=== PATIENT | female | born 1935 | race Hispanic/Latino ===

== ENCOUNTER 2019-03-19 11:57 | Emergency (ER) | payer MEDICARE ==
[~2019-03-19 11:57] MED LIST: ALOG25TA2 PO; AMLO10TA7 PO; ATOR20TA65 PO; BACL10TA PO; CIPR-245 PO; CLON0.2T PO; CLOP75TA32 PO; FURO40TA5 PO; GABA-529 PO; LISI-613 PO; METF-444 PO; PARO-37 PO; TRAM50TA4 PO; ZOLP5TAB8 PO
[2019-03-19 12:48] LABS: BASOPHILS % (AUTO) 0.4 % (0.0-5.0); EOSINOPHILS % (AUTO) 0.6 % (0.0-8.0); HEMATOCRIT 35.6 % (36-48); LYMPHOCYTES % (AUTO) 25.6 % (21.0-51.0); MEAN CORPUSCULAR HEMOGLOBIN 31.8 pg (27.0-33.0); MEAN CORPUSCULAR HGB CONC 33.4 g/dL (32.0-36.0); MEAN CORPUSCULAR VOLUME 95.3 fL (79-99); MONOCYTES % (AUTO) 8.9 % (3.0-13.0); NEUTROPHILS % (AUTO) 64.5 % (40.0-77.0); NUCLEATED RED BLOOD CELLS 0.1 % (0.0-0.19); PLATELET COUNT (AUTO) 196 K/uL (130-400); RED BLOOD CELL COUNT(AUTO) 3.74 MIL/uL (4.00-5.50); RED CELL DISTRIBUTION WIDTH 12.9 % (11.0-15.5); WHITE BLOOD COUNT (AUTO) 4.2 K/uL (4.8-10.8)
[2019-03-19 12:59] LABS: CREATININE 0.9 mg/dL (0.5-1.5); POTASSIUM 4.4 mmol/L (3.5-5.1)
[2019-03-19 13:00] LABS: INR 0.94 (0.85-1.15); PARTIAL THROMBOPLASTIN TIME 25.3 SEC (26.3-35.5); PROTHROMBIN TIME 9.9 SEC (9.6-11.6)
[2019-03-19 13:11] LABS: ALBUMIN 3.8 g/dL (3.5-5.0); BILIRUBIN,TOTAL 0.3 mg/dL (0.2-1.0); TOTAL PROTEIN, SERUM 7.1 g/dL (6.0-8.3)
[2019-03-19 13:28] LABS: APPEARANCE,URINE SL CLOUDY (CLEAR); BILIRUBIN,URINE NEGATIVE (NEGATIVE); COLOR,URINE YELLOW (YELLOW); GLUCOSE, URINE (UA) NEGATIVE (NEGATIVE); KETONES,URINE NEGATIVE (NEGATIVE); LEUKOCYTE ESTERASE ,URINE LARGE (NEGATIVE); NITRATE,URINE NEGATIVE (NEGATIVE); OCCULT BLOOD,URINE NEGATIVE (NEGATIVE); PH,URINE 7.5 (5.0-8.0); PROTEIN,URINE NEGATIVE (NEGATIVE); UROBILINOGEN,URINE 0.2 mg/dL (0.2-1.0)
[2019-03-19 13:34] LABS: BACTERIA,URINE Many /HPF (None Seen); RBC,URINE 0-1 /HPF (0-1); SQUAMOUS EPITHELIAL CELL,UR 0-2 /HPF (0-2)
[2019-03-19] MEDS ORDERED: SODIUM CHLORIDE 0.9% 100 ML IV ONE (13:54)
[2019-03-19] MEDS ORDERED: CEFTRIAXONE SODIUM 1 GM ONE (13:54)
== END 2019-03-19 15:45 | disposition home or self-care (01) ==
LOC: EDH 11:57
DX: S16.1XXA Strain of muscle, fascia and tendon at neck level, initial encounter (principal); N30.00 Acute cystitis without hematuria; G44.209 Tension-type headache, unspecified, not intractable; I10 Essential (primary) hypertension; E11.9 Type 2 diabetes mellitus without complications; I25.10 Atherosclerotic heart disease of native coronary artery without angina pectoris; Z88.6 Allergy status to analgesic agent; X58.XXXA Exposure to other specified factors, initial encounter; Y93.89 Activity, other specified; Y92.89 Other specified places as the place of occurrence of the external cause; Y99.8 Other external cause status
CPT/HCPCS: 36415; 70450; 71045; 72125; 80053; 81001; 82550; 83874; 84484; 85025; 85610; 85730; 87077; 87088; 87186; 93005; 96374; 99285; J0696

== ENCOUNTER 2019-06-22 15:16 | Inpatient (IN) | payer MEDICARE ==
[~2019-06-22] VITALS: Ht 160 cm; Wt 61.2 kg
[2019-06-22 15:46] LABS: BASOPHILS % (AUTO) 0.8 % (0.0-5.0); EOSINOPHILS % (AUTO) 0.9 % (0.0-8.0); HEMATOCRIT 35.1 % (36-48); LYMPHOCYTES % (AUTO) 33.9 % (21.0-51.0); MEAN CORPUSCULAR HGB CONC 34.3 g/dL (32.0-36.0); MEAN CORPUSCULAR VOLUME 96.3 fL (79-99); MONOCYTES % (AUTO) 8.8 % (3.0-13.0); NEUTROPHILS % (AUTO) 55.6 % (40.0-77.0); PLATELET COUNT (AUTO) 177 K/uL (130-400); RED BLOOD CELL COUNT(AUTO) 3.65 MIL/uL (4.00-5.50); RED CELL DISTRIBUTION WIDTH 12.6 % (11.0-15.5); WHITE BLOOD COUNT (AUTO) 4.6 K/uL (4.8-10.8)
[2019-06-22 15:52] LABS: CREATININE 0.8 mg/dL (0.5-1.5)
[2019-06-22 15:57] LABS: ALBUMIN 3.7 g/dL (3.5-5.0); BILIRUBIN,TOTAL 0.3 mg/dL (0.2-1.0); TOTAL PROTEIN, SERUM 6.6 g/dL (6.0-8.3)
[2019-06-22 16:08] LABS: INR 0.97 (0.85-1.15); PARTIAL THROMBOPLASTIN TIME 25.5 SEC (26.3-35.5); PROTHROMBIN TIME 10.2 SEC (9.6-11.6)
[2019-06-22 16:18] LABS: APPEARANCE,URINE Clear (CLEAR); BILIRUBIN,URINE Negative (NEGATIVE); COLOR,URINE Yellow (YELLOW); GLUCOSE, URINE (UA) Negative (NEGATIVE); KETONES,URINE Negative (NEGATIVE); LEUKOCYTE ESTERASE ,URINE Large (NEGATIVE); NITRATE,URINE Negative (NEGATIVE); OCCULT BLOOD,URINE Negative (NEGATIVE); PROTEIN,URINE Negative (NEGATIVE); UROBILINOGEN,URINE 0.2 mg/dL (0.2-1.0)
[2019-06-22 16:44] LABS: BACTERIA,URINE Few /HPF (None Seen); MUCUS,URINE None Seen LPF (None Seen); RBC,URINE 0-1 /HPF (0-1); SQUAMOUS EPITHELIAL CELL,UR 0-2 /HPF (0-2)
[2019-06-22] MEDS ORDERED: LIDOCAINE 5% TOPICAL PATCH TP ONE (16:56)
[2019-06-22 22:20] VITALS: BP 150/76
--- NOTE | 2019-06-22 22:20 | NUR ---
ADMIT PT ADMITTED TO ROOM 419,AAOX3. CLAIMS OF NUMBNESS TO LEFT SIDE OF FACE. PAIN TO LEFT CHEST AND LEFT ARM INTERMITTENT DEPENDING ON MOVEMENT. ADMISSION CARE DONE. ADMISSION DATA BASE COMPLETED. SALINE LOCK FLUSHED, PATENT. KEPT COMFORTABLE IN BED. RE-ITERATED FALL PRECAUTIONS. ORIENTED TO ROOM AND UNIT. IN FOR MORE CARE AND MANAGEMENT. Addendum: 06/23/19 at 0106 by MONA RESTREPO RN RN Amended: Links added.
--- NOTE | 2019-06-22 23:00 | NUR ---
PIV EXPLAINED THAT MRI AND MRA WILL BE DONE IN AM. PT AND PT'S DAUGHTER VERBALIZES UNDERSTANDING. CONSENT FOR MRI OF THE BRAIN AND MRA OF NECK SIGNED BY PT'S DAUGHTER/MPOA. PIV G20 INSERTED TO LAC, PT TOLERATED INSERTION WELL. INSTRUCTED PT TO BE NPO POST MN FOR TESTS. WILL MONITOR PT. CALL LIGHT WITHIN REACH. Addendum: 06/23/19 at 0113 by MONA RESTREPO RN RN Amended: Links added.
[2019-06-22] MEDS ORDERED: CALC-910 PO (23:57)
[2019-06-22] MEDS ORDERED: HYDR100T27 PO (23:57)
[2019-06-22] MEDS ORDERED: PANT40TA25 PO (23:57)
[2019-06-22] MEDS ORDERED: CYAN10007 IJ (23:57)
[2019-06-22] MEDS ORDERED: CYAN-35 PO (23:57)
[2019-06-22] MEDS ORDERED: CARV3.1262 PO (23:57)
[2019-06-22] MEDS ORDERED: LOSA50TA64 PO (23:57)
[2019-06-22] MEDS ORDERED: ASPI-555 PO (23:57)
[2019-06-22] MEDS ORDERED: OMEP40CA13 PO (23:57)
--- NOTE | 2019-06-23 02:00 | NUR ---
ROUNDS PT RESTING WELL, FAIRLY ASLEEP WITH RESPIRATIONS EVEN AND UNLABORED. NO NOTED DISTRESS. KEPT UNDISTURBED FOR NOW.
[2019-06-23 03:38] VITALS: BP 148/55
--- NOTE | 2019-06-23 06:00 | NUR ---
ROUNDS PT RESTING WELL. NO DISTRESS NOTED. KEPT RESTED AND COMFORTABLE. CALL LIGHT WITHIN REACH. FOR MORE CARE.
[2019-06-23 07:59] VITALS: BP 134/59
--- NOTE | 2019-06-23 09:20 | NUR ---
DR. BARLOW HERE FOR NEURO CARE AND ALSO SPOKE WITH DAUGHTER OF CONT ..CARE WITH .ORDERS TO FOLLOW
[2019-06-23] MEDS ORDERED: GADODIAMIDE 10 MMOL/20 ML VIAL IV ONE (09:30)
--- NOTE | 2019-06-23 09:40 | NUR ---
TO . MRI AND MRA VIA WHEELCHAIR
[2019-06-23 11:00] VITALS: BP 156/68
[2019-06-23] MEDS: CLOPIDOGREL BISULFATE 75 MG TAB PO SCH (11:06)
[2019-06-23] MEDS: ASPIRIN 325MG EC TAB 325 MG TABLET.DR PO SCH (11:06)
--- NOTE | 2019-06-23 11:59 | NUR ---
DYSPHAGIA EVAL COMPLETED. -S.S OF ASPIRATION. RECOMMEND MECHANICAL SOFT/CHOPPED, THIN LIQUIDS; PILLS WHOLE WITH LIQUIDS. RECOMMENDATIONS: 1. SKILLED SPEECH THERAPY TARGETING SWALLOWING GOALS 2-4XWK. LTG1: PT WILL TOLERATE LEAST RESTRICTIVE DIET WITH NO OVERT S/S OF ASPIRATION FOR ALL MEALS AND SNACKS. STG1: Pt WILL COMPLETE ORAL MOTOR EXERCISES WITH 80% ACCURACY. STG2: Pt WILL COMPLETE THERAPEUTIC TRIALS OF ADVANCED TEXTURE OF SOLIDS WITH NO OVERT S/S OF ASPIRATION. STG3: Pt WILL TOLERATE MECHANICAL SOFT/CHOPPED, THIN LIQUIDS WITH NO OVERT S/S OF ASPIRATION. STG4: SKILLED EDUCATION Pt/FAMILY/STAFF. Addendum: 06/23/19 at 1211 by OBDULIO CAPELLAN [facility] Amended: Links added.
--- NOTE | 2019-06-23 12:15 | NUR ---
COGNITIVE-LINGUISTIC EVAL COMPLETED. Pt WITH MILD MOTOR SPEECH DEFICITS. PT INTELLIGIBLE AT 80% IN RUNNING SPEECH WITH FACIAL WEAKNESS ON LEFT SIDE. Pt WITH DECREASED ABILITY TO COMPLETE AMRs/SMRs. Pt WITH LABORED LINGUAL AND LABIAL MOVEMENT AT THIS TIME. RECOMMENDATIONS: 1. SKILLED SPEECH THERAPY TARGETING MOTOR SPEECH 2-4XWK. LTG1: PT WILL INCREASE SPEECH INTELLIGIBILITY TO BE UNDERSTOOD IN ALL CONTEXTS. STG1: Pt WILL COMPLETE LINGUAL AND LABIAL EXERCISES WITH 80% ACCURACY, STG2: Pt WILL COMPLETE AMRs/SMRs WITH 80% ACCURACY. STG3: SKILLED EDUCATED Pt/FAMILY AND STAFF. STG4: Pt WILL COMPLETE SPEECH CLARITY TECHNIQUES AT THE PHRASE LEVEL WITH 80% ACCURACY. Addendum: 06/23/19 at 1222 by OBDULIO CAPELLAN, [facility] Amended: Links added.
--- NOTE | 2019-06-23 15:14 | NUR ---
RD RECOMMENDATION DX: LEFT SIDED WEAKNESS. HX: DM, HTN. DIET: NPO. LBM: 06/23. SKIN INTACT, NO EDEMA. PO INTAKE 50-75% AND HAS GOOD APPETITE PER PT. NO NAUSEA, VOMITING OR DIARRHEA NOTED. PT CLAIMS TO HAVE DIFFICULTY SWALLOWING. PT ASKED TO MODIFY FOOD TEXTURES TO MECHANICAL CHOPPED/ SOFT. PT LIKES GLUCERNA AND DRINKS THEM AT HOME. RD RECOMMENDS TO CONTINUE CURRENT DIET. ADVANCE TOLERATED TO CCD/ HEART HEALTHY, MECHANICAL CHOPPED/ SOFT. RECOMMEND GLUCERNA A SNACK (VANILLA). RECOMMEND A1C AND LIPID PANEL LAB DRAW. RD WILL CONTINUE TO MONITOR AND FOLLOW UP NEEDED. THANK YOU. Addendum: 06/23/19 at [address] Amended: Links added.
[2019-06-23 16:00] VITALS: BP 155/64
--- NOTE | 2019-06-23 17:00 | NUR ---
INITIAL MET W PT WITH SUSAN FROM [facility] ON AGING AT BEDSIDE, PT AAOX3, W BELLS PALSY, BUT EASY TO UNDERSTAND. JANE. PT STATES LIVES ALONE WITH HELP, AND DAUGHTER SANTOS NEARBY , NO STAITS, USES A STD WKR W WHEELS AND HAS [facility] AND [facility] FOR PROVIDER SERVICES. DAUGHTER CAME AT END OF INTERVIW AND ADDED INFO TO THE HSITORY. PT IS GOOD HISTORIAN WILL FOLLOW RECOMMENDATION PER MD GUPTA PT NEEDS . ADMIT FOR TIA VS CERVICAL RADICULOPTHY Addendum: 06/23/19 at 1821 by YAMILE ADAMS RN CM Amended: Links added.
[2019-06-23 19:00] VITALS: BP 149/65
[2019-06-23] MEDS ORDERED: ZOLPIDEM TARTRATE 5 MG TAB PO PRN (19:15)
[2019-06-23] MEDS: LOSARTAN 50 MG TABLET PO SCH (20:58)
[2019-06-23] MEDS: HYDRALAZINE HCL 25 MG TABLET PO SCH (20:59)
--- NOTE | 2019-06-23 20:59 | NUR ---
MEDS SHIFT ASSESSMENT DONE, PLEASE REFER TO CHART. PT VERBALIZES STILL HAVING NUMBNESS TO LEFT SIDE OF HER FACE. NOTED LEFT SIDED FACIAL DROOP. DUE MEDS ADMINISTERED, TOLERATED WELL. KEPT RESTED AND COMFORTABLE. CALL LIGHT WITHIN REACH. WILL MONITOR PT. Addendum: 06/24/19 at 0204 by MONA RESTREPO RN RN Amended: Links added.
[2019-06-23] MEDS: CARVEDILOL 3.125 MG TABLET PO SCH (21:00)
[2019-06-24] VITALS: BP 133/56
--- NOTE | 2019-06-24 02:00 | NUR ---
ROUNDS PT RESTING WELL, FAIRLY ASLEEP WITH RESPIRATIONS EVEN AND UNLABORED. NO NOTED DISTRESS. KEPT UNDISTURBED FOR NOW. WILL MONITOR PT.
[2019-06-24 04:00] VITALS: BP 140/42
[2019-06-24] MEDS: PANTOPRAZOLE SODIUM 40 MG TABLET.DR PO SCH ×2 (06:50→10:41)
--- NOTE | 2019-06-24 06:50 | NUR ---
MEDS AWAKENED PT FOR DUE MEDS, TOLERATED WELL. KEPT RESTED AND COMFORTABLE. CALL LIGHT WITHIN REACH. FOR MORE CARE.
[2019-06-24 07:30] VITALS: BP 135/61
--- NOTE | 2019-06-24 08:30 | NUR ---
MD AT PTS BEDSIDE DISCUSSING PLAN PT WILL NOT BE SET UP AT THIS TIME WILL WAIT FOR CLEARENCE BY YEN/SIX DR. SPENCER CAN SET UP PT --TO ADD TO HOME HEALTH- FROM HER OFFICE
[2019-06-24] MEDS ORDERED: AMLODIPINE BESYLATE 5 MG TAB PO SCH (09:00)
[2019-06-24] MEDS ORDERED: PAROXETINE HCL 20 MG TABLET PO SCH (09:00)
[2019-06-24] MEDS ORDERED: CYANOCOBALAMIN (VITAMIN B-12) 1,000 MCG TABLET PO SCH (09:00)
[2019-06-24] MEDS: LOSARTAN 50 MG TABLET PO SCH (10:39)
[2019-06-24] MEDS: ASPIRIN 325MG EC TAB 325 MG TABLET.DR PO SCH (10:39)
[2019-06-24] MEDS: CARVEDILOL 3.125 MG TABLET PO SCH (10:40)
[2019-06-24] MEDS: HYDRALAZINE HCL 25 MG TABLET PO SCH ×2 (10:41→14:19)
[2019-06-24] MEDS: CLOPIDOGREL BISULFATE 75 MG TAB PO SCH (10:41)
[2019-06-24 11:00] VITALS: BP 141/58
--- NOTE | 2019-06-24 14:39 | NUR ---
SPEECH THERAPY COMPLETED. S: Pt SEATED IN CHAIR WITH DAUGHTERS AT BEDSIDE. Pt COOPERATIVE WITH ALL EXERCISES. O: Pt CURRENTLY TARGETING SPEECH AND SWALLOWING GOALS. RESULTS FOLLOWS: STG1: Pt WILL COMPLETE ORAL MOTOR EXERCISES WITH 80% ACCURACY: 70% ACCURACY GIVEN MAX CUES STG2: Pt WILL COMPLETE THERAPEUTIC TRIALS OF ADVANCED TEXTURE OF SOLIDS WITH NO OVERT S/S OF ASPIRATION: Pt WITH IMPROVED COORDINATION AND MASTICATION AT THIS TIME. STG3: Pt WILL TOLERATE MECHANICAL SOFT/CHOPPED, THIN LIQUIDS WITH NO OVERT S/S OF ASPIRATION: NO OVERT S/S OF ASPIRATION. Pt TOLERATING DIET AT THIS TIME STG4: SKILLED EDUCATION Pt/FAMILY/STAFF: [employer] EDUCATED DAUGHTERS AND PROVIDED HOME PROGRAM WITH WRITTEN HANDOUT FOR EXERCISES TO COMPLETE IN THE HOME. STG5: Pt WILL COMPLETED AMRs/SMRs WITH 80% ACCURACY: 70% ACCURACY GIVEN MAX CUES. STG6: Pt WILL COMPLETE SPEECH CLARITY EXERCISES WITH 80% ACCURACY: 70% ACCURACY AT PHRASE LEVEL A: Pt WITH IMPROVED LABIAL MOVEMENT AND SYMMETRY. Pt ABLE TO INCREASED LINGUAL COORDINATION WITH IMPROVED ROM. P: RECOMMEND CONTINUED SKILLED SPEECH THERAPY TARGETING SPEECH AND SWALLOWING GOALS. MER[employer] W[employer]ER COORDINATED CARE WITH NURSE MACIEL AT THIS TIME. ALL QUESTIONS ANSWERED BY [employer] W[employer]ER FOR Pt AND DAUGHTER. Addendum: 06/24/19 at 1449 by OBDULIO CAPELLAN [facility] Amended: Links added.
[2019-06-24 16:00] VITALS: BP 115/48
--- NOTE | 2019-06-24 17:48 | NUR ---
PATIENT GIVEN DISCHARGE INSTRUCTIONS AND VERBALIZED UNDERSTANDING, BOTH IV REMOVED WITH CATHETER INTACT AND SITE DRESSED. PATIENT INSTRUCTED TO CALL DR MADDOX OFFICE IN AM FOR FOLLOW-UP APPOINTMENT, TAKE ASPIRIN FOR SIX MORE DAYS WITH PLAVIX THEN DISCONTINUE ASPIRIN AND CONTINUE TAKING PLAVIX. , PATIENT TO GET REFERRALS FOR DR MADDOX FOR DR LEYVA AND DR BARLOW FOLLOW-UPS, NO QUESTIONS OR CONCERNS AT THIS TIME PAINT TAKING VIA WHEELCHAIR TO LOBBY AND LEFT WITH DAUGHTER FOR HOME
--- NOTE | 2019-06-24 18:27 | NUR ---
AT PTS BEDSIDE DISCUSSING PLAN PT WILL NOT BE SET UP AT THIS TIME WILL WAIT FOR CLEARENCE BY YEN/AUTUM[employer] SPENCER CAN SET UP PT --TO ADD TO HOME HEALTH- FROM HER OFFICE Addendum: 06/24/19 at 1830 by YAMILE ADAMS RN CM THIS NOTE IS FORM 0830 Addendum: 06/24/19 at 1831 by YAMILE ADAMS RN CM Amended: Links added.
== END 2019-06-24 17:50 | disposition home or self-care (01) | DRG 69 ==
LOC: EDH 15:16 → OBSVTOIN 17:17 → EDHIP 17:17 → 4CH 22:07 → UNDODISIN 06-24 16:05
PROVIDERS: ADMIT Internal Medicine Nephrology; ATTEND Internal Medicine Nephrology
DX: G45.9 Transient cerebral ischemic attack, unspecified (principal); I10 Essential (primary) hypertension; E78.5 Hyperlipidemia, unspecified; E11.40 Type 2 diabetes mellitus with diabetic neuropathy, unspecified; F41.1 Generalized anxiety disorder; I25.10 Atherosclerotic heart disease of native coronary artery without angina pectoris; M50.10 Cervical disc disorder with radiculopathy, unspecified cervical region; M81.0 Age-related osteoporosis without current pathological fracture; M19.90 Unspecified osteoarthritis, unspecified site; F32.9 Major depressive disorder, single episode, unspecified; J30.9 Allergic rhinitis, unspecified; G47.00 Insomnia, unspecified; Z79.02 Long term (current) use of antithrombotics/antiplatelets; Z79.82 Long term (current) use of aspirin
CPT/HCPCS: 36415; 70450; 70544; 70547; 70551; 71045; 72141; 80053; 81001; 82550; 82948; 84484; 85025; 85610; 85730; 92507; 92522; 92610; 93005; 93306; A9579; G0378

== ENCOUNTER 2022-04-09 21:20 | Emergency (ER) | payer MEDICARE ==
[~2022-04-09 21:20] MED LIST changes: -ALOG25TA2 PO; -AMLO10TA7 PO; +ATOR10 PO; -ATOR20TA65 PO; -BACL10TA PO; +CARV3.12 PO; -CIPR-245 PO; +CLON0.1T PO; -CLON0.2T PO; +FURO20TA4 PO; -FURO40TA5 PO; -GABA-529 PO; -LISI-613 PO; +LOSA50TA64 PO; +OMEP20CA12 PO; -PARO-37 PO; -TRAM50TA4 PO
[2022-04-09 22:05] LABS: BASOPHILS % (AUTO) 0.3 % (0.0-5.0); EOSINOPHILS % (AUTO) 0.5 % (0.0-8.0); HEMATOCRIT 36.9 % (36-48); LYMPHOCYTES % (AUTO) 12.1 % (21.0-51.0); MEAN CORPUSCULAR HEMOGLOBIN 30.7 pg (27.0-33.0); MEAN CORPUSCULAR HGB CONC 33.1 g/dL (32.0-36.0); MEAN CORPUSCULAR VOLUME 92.9 fL (79-99); NEUTROPHILS % (AUTO) 76.6 % (40.0-77.0); PLATELET COUNT (AUTO) 155 K/uL (130-400); RED BLOOD CELL COUNT(AUTO) 3.97 MIL/uL (4.00-5.50); RED CELL DISTRIBUTION WIDTH 12.1 % (11.0-15.5); WHITE BLOOD COUNT (AUTO) 6.4 K/uL (4.8-10.8)
[2022-04-09 22:21] LABS: CREATININE 0.8 mg/dL (0.5-1.5); POTASSIUM 4.2 mmol/L (3.5-5.1)
[2022-04-09 22:28] LABS: ALBUMIN 3.2 g/dL (3.5-5.0); TOTAL PROTEIN, SERUM 7.1 g/dL (6.0-8.3)
[2022-04-09 22:49] LABS: APPEARANCE,URINE SL CLOUDY (CLEAR); BILIRUBIN,URINE NEGATIVE (NEGATIVE); COLOR,URINE YELLOW (YELLOW); GLUCOSE, URINE (UA) NEGATIVE (NEGATIVE); KETONES,URINE NEGATIVE (NEGATIVE); LEUKOCYTE ESTERASE ,URINE MODERATE (NEGATIVE); NITRATE,URINE POSITIVE (NEGATIVE); OCCULT BLOOD,URINE TRACE-INTACT (NEGATIVE); PH,URINE 5.5 (5.0-8.0); PROTEIN,URINE TRACE mg/dL (NEGATIVE); UROBILINOGEN,URINE 0.2 mg/dL (0.2-1.0)
[2022-04-09 22:55] LABS: BACTERIA,URINE Moderate /HPF (None Seen); RBC,URINE 0-1 /HPF (0-1)
[2022-04-09 23:12] VITALS: BP 149/73
[2022-04-09] MEDS ORDERED: MACR100 PO (23:22)
[2022-04-09] MEDS ORDERED: NIRM1TAB PO (23:22)
== END 2022-04-09 23:45 | disposition home or self-care (01) ==
LOC: EDH 21:20
DX: U07.1 COVID-19 (principal); S09.90XA Unspecified injury of head, initial encounter; N39.0 Urinary tract infection, site not specified; I10 Essential (primary) hypertension; I25.2 Old myocardial infarction; Z79.84 Long term (current) use of oral hypoglycemic drugs; Z79.899 Other long term (current) drug therapy; Z86.73 Personal history of transient ischemic attack (TIA), and cerebral infarction without residual deficits; Z87.440 Personal history of urinary (tract) infections; Z88.6 Allergy status to analgesic agent; W06.XXXA Fall from bed, initial encounter; Y93.89 Activity, other specified; Y92.89 Other specified places as the place of occurrence of the external cause; Y99.8 Other external cause status
CPT/HCPCS: 99285; 70450; 71045; 87635; 84484; 80053; 85025; 87077; 87088; 87186; 87804 ×2; 81001; 36415; 72100; 93005; C9803

== ENCOUNTER 2022-09-29 09:53 | Inpatient (IN) | payer MEDICARE ==
[~2022-09-29] VITALS: Ht 149.9 cm; Wt 71.9 kg
[~2022-09-29 09:53] MED LIST changes: +MACR100 PO; +NIRM1TAB PO
[2022-09-29 10:51] LABS: BASOPHILS % (AUTO) 0.2 % (0.0-5.0); EOSINOPHILS % (AUTO) 1.5 % (0.0-8.0); HEMATOCRIT 40.1 % (36-48); LYMPHOCYTES % (AUTO) 23.4 % (21.0-51.0); MEAN CORPUSCULAR HGB CONC 32.9 g/dL (32.0-36.0); MEAN CORPUSCULAR VOLUME 94.1 fL (79-99); MONOCYTES % (AUTO) 6.9 % (3.0-13.0); NEUTROPHILS % (AUTO) 67.8 % (40.0-77.0); PLATELET COUNT (AUTO) 187 K/uL (130-400); RED BLOOD CELL COUNT(AUTO) 4.26 MIL/uL (4.00-5.50); WHITE BLOOD COUNT (AUTO) 4.6 K/uL (4.8-10.8)
[2022-09-29 11:00] LABS: CREATININE 0.9 mg/dL (0.5-1.5); POTASSIUM 4.1 mmol/L (3.5-5.1)
[2022-09-29 11:01] LABS: APPEARANCE,URINE CLEAR (CLEAR); BILIRUBIN,URINE NEGATIVE (NEGATIVE); COLOR,URINE COLORLESS (YELLOW); GLUCOSE, URINE (UA) NEGATIVE (NEGATIVE); KETONES,URINE NEGATIVE (NEGATIVE); LEUKOCYTE ESTERASE ,URINE NEGATIVE Leu/uL (NEGATIVE); NITRATE,URINE NEGATIVE (NEGATIVE); OCCULT BLOOD,URINE NEGATIVE (NEGATIVE); PROTEIN,URINE NEGATIVE (NEGATIVE); UROBILINOGEN,URINE 0.2 mg/dL (0.2-1.0)
[2022-09-29 11:10] LABS: ALBUMIN 3.4 g/dL (3.5-5.0); TOTAL PROTEIN, SERUM 7.4 g/dL (6.0-8.3)
[2022-09-29] MEDS ORDERED: AMLO-257 PO (14:32)
[2022-09-29] MEDS ORDERED: PROP1DRO4 OP (14:32)
[2022-09-29] MEDS ORDERED: CYCL5.5D OP (14:32)
[2022-09-29] MEDS ORDERED: SOLI5 PO (14:32)
[2022-09-29] MEDS ORDERED: ACET-2247 PO (14:32)
[2022-09-29] MEDS ORDERED: LIFI1DRO OP (14:32)
[2022-09-29] MEDS ORDERED: CRAN400C PO (14:32)
[2022-09-29] MEDS ORDERED: CETI10TA87 PO (14:32)
[2022-09-29] MEDS ORDERED: GABA-529 PO (14:32)
[2022-09-29] MEDS ORDERED: CEPH250C2 PO (14:32)
[2022-09-29 16:10] VITALS: BP 159/60
[2022-09-29] MEDS ORDERED: MAGNESIUM 2GM PREMIX 50ML 50 ML IV ONE (20:02)
[2022-09-29 20:50] VITALS: BP 174/62
[2022-09-29] MEDS ORDERED: ZOLP5TAB8 PO (21:50)
[2022-09-29] MEDS ORDERED: ZOLPIDEM TARTRATE 5 MG TAB ONE (22:22)
[2022-09-29] MEDS ORDERED: CARVEDILOL 3.125 MG TABLET PO ONE (22:23)
[2022-09-29] MEDS ORDERED: LOSARTAN 50 MG TABLET ONE (22:23)
[2022-09-29] MEDS ORDERED: ACETAMINOPHEN 325 MG TAB PO PRN (22:30)
[2022-09-29 23:38] VITALS: BP 161/58
[2022-09-30 04:22] VITALS: BP 137/55
[2022-09-30 04:43] LABS: BASOPHILS % (AUTO) 0.5 % (0.0-5.0); EOSINOPHILS % (AUTO) 1.6 % (0.0-8.0); HEMATOCRIT 37.2 % (36-48); LYMPHOCYTES % (AUTO) 36.6 % (21.0-51.0); MEAN CORPUSCULAR HEMOGLOBIN 30.5 pg (27.0-33.0); MEAN CORPUSCULAR HGB CONC 33.3 g/dL (32.0-36.0); MEAN CORPUSCULAR VOLUME 91.6 fL (79-99); MONOCYTES % (AUTO) 8.7 % (3.0-13.0); NEUTROPHILS % (AUTO) 52.4 % (40.0-77.0); PLATELET COUNT (AUTO) 184 K/uL (130-400); RED BLOOD CELL COUNT(AUTO) 4.06 MIL/uL (4.00-5.50); RED CELL DISTRIBUTION WIDTH 11.9 % (11.0-15.5); WHITE BLOOD COUNT (AUTO) 4.4 K/uL (4.8-10.8)
[2022-09-30 05:16] LABS: ALBUMIN 3.1 g/dL (3.5-5.0); CREATININE 0.7 mg/dL (0.5-1.5); MAGNESIUM 1.6 mg/dL (1.80-2.40); TOTAL PROTEIN, SERUM 6.5 g/dL (6.0-8.3)
[2022-09-30] MEDS ORDERED: MAGNESIUM 2GM PREMIX 50ML 50 ML IV ONE (05:59)
[2022-09-30 08:00] VITALS: BP 137/46
[2022-09-30] MEDS: LOSARTAN 50 MG TABLET PO SCH ×2 (08:13→20:30)
[2022-09-30] MEDS: CETIRIZINE HCL 5 MG TABLET PO SCH (08:13)
[2022-09-30] MEDS: METFORMIN HCL 500 MG TAB.SR.24H PO SCH (08:13)
[2022-09-30] MEDS: CLOPIDOGREL 75MG TAB PO SCH (08:14)
[2022-09-30] MEDS: CARVEDILOL 3.125 MG TABLET PO SCH ×2 (08:15→20:30)
[2022-09-30] MEDS: GABAPENTIN 100 MG CAPSULE PO SCH ×2 (08:16→22:59)
[2022-09-30] MEDS: VESICARE 5 MG PO SCH (08:16)
[2022-09-30] MEDS: CRANBERRY 500 MG PO SCH ×2 (08:16→20:32)
[2022-09-30] MEDS: CYCLOSPORINE OP SCH ×2 (08:17→20:32)
[2022-09-30] MEDS: LIFITEGRAST OP SCH ×3 (08:17→20:33)
[2022-09-30] MEDS ORDERED: ENOXAPARIN SODIUM 1 MG/KG SQ SCH (09:00)
[2022-09-30 11:58] VITALS: BP 147/56
[2022-09-30] MEDS ORDERED: ENOXAPARIN SODIUM 80 MG/0.8 ML SQ SCH (15:30)
[2022-09-30 16:00] VITALS: BP 154/60
[2022-09-30 20:29] VITALS: BP 178/57
[2022-09-30] MEDS: ZOLPIDEM TARTRATE 5 MG TAB PO SCH (20:30)
[2022-10-01] VITALS (7 sets, daily range): BP systolic 140–190; BP diastolic 55–79
[2022-10-01 05:22] LABS: BASOPHILS % (AUTO) 0.3 % (0.0-5.0); EOSINOPHILS % (AUTO) 1.8 % (0.0-8.0); HEMATOCRIT 37.3 % (36-48); LYMPHOCYTES % (AUTO) 37.8 % (21.0-51.0); MEAN CORPUSCULAR HEMOGLOBIN 30.7 pg (27.0-33.0); MEAN CORPUSCULAR HGB CONC 32.7 g/dL (32.0-36.0); MEAN CORPUSCULAR VOLUME 93.7 fL (79-99); MONOCYTES % (AUTO) 7.4 % (3.0-13.0); NEUTROPHILS % (AUTO) 52.4 % (40.0-77.0); PLATELET COUNT (AUTO) 167 K/uL (130-400); RED BLOOD CELL COUNT(AUTO) 3.98 MIL/uL (4.00-5.50); WHITE BLOOD COUNT (AUTO) 3.9 K/uL (4.8-10.8)
[2022-10-01 05:37] LABS: CREATININE 0.7 mg/dL (0.5-1.5); POTASSIUM 3.9 mmol/L (3.5-5.1); TOTAL PROTEIN, SERUM 6.5 g/dL (6.0-8.3)
[2022-10-01] MEDS: METFORMIN HCL 500 MG TAB.SR.24H PO SCH (08:00)
[2022-10-01] MEDS: VESICARE 5 MG PO SCH (09:00)
[2022-10-01] MEDS ORDERED: ENOXAPARIN SODIUM 1 MG/KG SQ SCH (09:00)
[2022-10-01] MEDS: CRANBERRY 500 MG PO SCH ×2 (09:00→20:30)
[2022-10-01] MEDS: REGADENOSON 0.4 MG/5 ML PF SYG IVP SCH ×2 (09:00→13:21)
[2022-10-01] MEDS: LIFITEGRAST OP SCH ×3 (09:00→20:29)
[2022-10-01] MEDS: CYCLOSPORINE OP SCH ×2 (09:00→20:29)
[2022-10-01] MEDS: CLOPIDOGREL 75MG TAB PO SCH (15:21)
[2022-10-01] MEDS: CETIRIZINE HCL 5 MG TABLET PO SCH (15:21)
[2022-10-01] MEDS: LOSARTAN 50 MG TABLET PO SCH ×2 (15:23→20:31)
[2022-10-01] MEDS: GABAPENTIN 100 MG CAPSULE PO SCH ×2 (15:23→20:31)
[2022-10-01] MEDS: CARVEDILOL 3.125 MG TABLET PO SCH ×2 (15:26→20:32)
[2022-10-01] MEDS: ENOXAPARIN SODIUM 80 MG/0.8 ML SQ SCH (15:27)
[2022-10-01] MEDS: ZOLPIDEM TARTRATE 5 MG TAB PO SCH (20:32)
[2022-10-02 04:31] VITALS: BP 153/58
[2022-10-02 08:38] VITALS: BP 179/71
[2022-10-02] MEDS: CRANBERRY 500 MG PO SCH ×2 (09:00→20:31)
[2022-10-02] MEDS: LIFITEGRAST OP SCH ×3 (09:00→20:31)
[2022-10-02] MEDS: VESICARE 5 MG PO SCH (09:00)
[2022-10-02] MEDS: CYCLOSPORINE OP SCH ×2 (09:00→20:31)
[2022-10-02] MEDS: CETIRIZINE HCL 5 MG TABLET PO SCH (09:23)
[2022-10-02] MEDS: METFORMIN HCL 500 MG TAB.SR.24H PO SCH (09:23)
[2022-10-02] MEDS: CLOPIDOGREL 75MG TAB PO SCH (09:24)
[2022-10-02] MEDS: GABAPENTIN 100 MG CAPSULE PO SCH ×2 (09:24→20:30)
[2022-10-02] MEDS: LOSARTAN 50 MG TABLET PO SCH ×2 (09:24→20:29)
[2022-10-02] MEDS: CARVEDILOL 3.125 MG TABLET PO SCH ×2 (09:25→20:30)
[2022-10-02] MEDS: ENOXAPARIN SODIUM 80 MG/0.8 ML SQ SCH (09:25)
[2022-10-02] MEDS ORDERED: MAGNESIUM OXIDE 400 MG TABLET PO SCH (10:00)
[2022-10-02 12:07] VITALS: BP 158/85
[2022-10-02] MEDS ORDERED: IOHEXOL-350 50ML VIAL IV ONE (15:28)
[2022-10-02 16:30] VITALS: BP 197/67
[2022-10-02 19:51] VITALS: BP 139/56
[2022-10-02] MEDS: ZOLPIDEM TARTRATE 5 MG TAB PO SCH (20:30)
[2022-10-03 00:12] VITALS: BP 127/61
[2022-10-03 03:52] VITALS: BP 153/61
[2022-10-03 08:01] VITALS: BP 141/61
[2022-10-03] MEDS: CYCLOSPORINE OP SCH (08:55)
[2022-10-03] MEDS: LIFITEGRAST OP SCH (08:55)
[2022-10-03] MEDS: VESICARE 5 MG PO SCH (08:56)
[2022-10-03] MEDS: CRANBERRY 500 MG PO SCH (08:56)
[2022-10-03 09:00] VITALS: BP 141/61
[2022-10-03] MEDS: CARVEDILOL 3.125 MG TABLET PO SCH (09:00)
[2022-10-03] MEDS: ENOXAPARIN SODIUM 80 MG/0.8 ML SQ SCH (09:00)
[2022-10-03] MEDS: METFORMIN HCL 500 MG TAB.SR.24H PO SCH (09:37)
[2022-10-03] MEDS: CETIRIZINE HCL 5 MG TABLET PO SCH (09:37)
[2022-10-03] MEDS: GABAPENTIN 100 MG CAPSULE PO SCH (09:38)
[2022-10-03] MEDS: CLOPIDOGREL 75MG TAB PO SCH (09:38)
[2022-10-03] MEDS: LOSARTAN 50 MG TABLET PO SCH (09:38)
== END 2022-10-03 10:05 | DRG 313 ==
LOC: EDH 09:53 → EDHIP 13:30 → 4BH 16:10
PROVIDERS: ADMIT Internal Medicine; ATTEND Internal Medicine
DX: R07.89 Other chest pain (principal); I25.110 Atherosclerotic heart disease of native coronary artery with unstable angina pectoris; I10 Essential (primary) hypertension; E78.5 Hyperlipidemia, unspecified; R60.0 Localized edema; E11.9 Type 2 diabetes mellitus without complications; R32 Unspecified urinary incontinence; Z79.4 Long term (current) use of insulin; Z82.49 Family history of ischemic heart disease and other diseases of the circulatory system; Z86.73 Personal history of transient ischemic attack (TIA), and cerebral infarction without residual deficits
CPT/HCPCS: 36415; 71045; 71260; 78452; 80053; 81003; 82550; 82948; 83735; 83874; 83880; 84484; 85025; 93005; 93017; 93306; 96374; A9500; G0378; J1650; J2785; J3475; Q9967

== ENCOUNTER 2022-11-30 06:55 | Inpatient (IN) | payer MEDICARE ==
[~2022-11-30] VITALS: Ht 157.5 cm; Wt 74.8 kg
[~2022-11-30 06:55] MED LIST changes: +ACET-2247 PO; +AMLO-257 PO; -ATOR10 PO; +CEPH250C2 PO; +CETI10TA87 PO; -CLON0.1T PO; +CRAN400C PO; +CYCL5.5D OP; -FURO20TA4 PO; +GABA-529 PO; +LIFI1DRO OP; -MACR100 PO; -NIRM1TAB PO; +PROP1DRO4 OP; +SOLI5 PO
[2022-11-30 07:57] LABS: BASOPHILS % (AUTO) 0.1 % (0.0-5.0); HEMATOCRIT 35.1 % (36-48); MEAN CORPUSCULAR HEMOGLOBIN 30.8 pg (27.0-33.0); MEAN CORPUSCULAR VOLUME 93.1 fL (79-99); MONOCYTES % (AUTO) 1.7 % (3.0-13.0); NEUTROPHILS % (AUTO) 94.9 % (40.0-77.0); PLATELET COUNT (AUTO) 174 K/uL (130-400); RED BLOOD CELL COUNT(AUTO) 3.77 MIL/uL (4.00-5.50); RED CELL DISTRIBUTION WIDTH 12.4 % (11.0-15.5); WHITE BLOOD COUNT (AUTO) 17.4 K/uL (4.8-10.8)
[2022-11-30] MEDS ORDERED: ACETAMINOPHEN 500 MG TABLET PO ONE (08:00)
[2022-11-30 08:17] LABS: ALBUMIN 3.1 g/dL (3.5-5.0); POTASSIUM 3.7 mmol/L (3.5-5.1); TOTAL PROTEIN, SERUM 6.6 g/dL (6.0-8.3)
[2022-11-30 08:24] LABS: APPEARANCE,URINE CLOUDY (CLEAR); BILIRUBIN,URINE NEGATIVE (NEGATIVE); COLOR,URINE YELLOW (YELLOW); GLUCOSE, URINE (UA) 30 mg/dL (NEGATIVE); KETONES,URINE NEGATIVE (NEGATIVE); LEUKOCYTE ESTERASE ,URINE 500 Leu/uL (NEGATIVE); NITRATE,URINE NEGATIVE (NEGATIVE); OCCULT BLOOD,URINE SMALL (NEGATIVE); PH,URINE 5.5 (5.0-8.0); PROTEIN,URINE 30 mg/dL (NEGATIVE); UROBILINOGEN,URINE 0.2 mg/dL (0.2-1.0)
[2022-11-30 08:32] LABS: BACTERIA,URINE FEW /HPF (None Seen); MUCUS,URINE RARE LPF (None Seen); SQUAMOUS EPITHELIAL CELL,UR MANY /HPF (0-2); WBC,URINE >100 /HPF (0-1)
[2022-11-30] MEDS ORDERED: 0.9%NACL 1000ML 1,000 ML IV SCH (09:00)
[2022-11-30] MEDS ORDERED: CEFTRIAXONE 1G VIAL IVPB ONE (09:00)
[2022-11-30] MEDS ORDERED: LIDOCAINE HCL-MPF 1% 2ML VIAL IV PRN (10:30)
[2022-11-30] MEDS ORDERED: POTASSIUM CHLORIDE 10% ELIXIR 20 MEQ/15 ML UDCUP PO PRN (10:30)
[2022-11-30] MEDS ORDERED: KCL 20 MEQ ERTAB PO PRN (10:30)
[2022-11-30] MEDS ORDERED: MAGNESIUM 2GM PREMIX 50ML 50 ML IV PRN (10:30)
[2022-11-30] MEDS ORDERED: POTASSIUM CHLORIDE 20MEQ/100ML 100 ML IV PRN (10:30)
[2022-11-30] MEDS: CEFTRIAXONE 2GM VIAL IVP SCH (11:00)
[2022-11-30] MEDS: LACTATED RINGERS 1000ML 1,000 ML IV SCH (13:17)
[2022-11-30] MEDS ORDERED: CEFTRIAXONE 1G VIAL IVP ONE (13:30)
[2022-11-30] MEDS ORDERED: CRAN500T4 PO (14:33)
[2022-11-30] MEDS ORDERED: NITR100C9 PO (14:33)
[2022-11-30] MEDS ORDERED: HYDR12.54 PO (14:33)
[2022-11-30] MEDS ORDERED: CARB-283 OP (14:33)
[2022-11-30 15:00] VITALS: BP 151/58
[2022-11-30 20:00] VITALS: BP 164/68
[2022-11-30] MEDS: INSULIN HUMULIN R 100 UNIT/ML 3ML SQ SCH (20:19)
[2022-11-30 20:26] LABS: HEMOGLOBIN A1C 7.9 % (4.0-6.0)
[2022-11-30] MEDS ORDERED: HYDROXYZINE 25 MG TABLET PO ONE (20:30)
[2022-11-30] MEDS ORDERED: GLUCAGON 1MG KIT 1 MG ML IM PRN (20:30)
[2022-11-30] MEDS ORDERED: DEXTROSE 50%-WATER 50 ML DISP.SYRIN IV PRN (20:30)
[2022-11-30 23:05] VITALS: BP 130/66
[2022-12-01] VITALS (8 sets, daily range): BP systolic 147–198; BP diastolic 62–84
[2022-12-01] MEDS: LACTATED RINGERS 1000ML 1,000 ML IV SCH ×2 (00:48→16:00)
[2022-12-01] MEDS ORDERED: HYDRALAZINE 20MG/ML VIAL IV STA ×2 (03:39→23:19)
[2022-12-01] MEDS ORDERED: HYDRALAZINE 20MG/ML VIAL ONE (03:44)
[2022-12-01] MEDS: INSULIN HUMULIN R 100 UNIT/ML 3ML SQ SCH ×4 (06:03→20:23)
[2022-12-01 08:51] LABS: MEAN CORPUSCULAR HEMOGLOBIN 30.4 pg (27.0-33.0); MEAN CORPUSCULAR HGB CONC 32.7 g/dL (32.0-36.0); RED BLOOD CELL COUNT(AUTO) 3.98 MIL/uL (4.00-5.50); RED CELL DISTRIBUTION WIDTH 12.7 % (11.0-15.5); WHITE BLOOD COUNT (AUTO) 7.6 K/uL (4.8-10.8)
[2022-12-01 09:00] LABS: CREATININE 0.9 mg/dL (0.5-1.5); POTASSIUM 3.4 mmol/L (3.5-5.1)
[2022-12-01 09:05] LABS: ALBUMIN 2.9 g/dL (3.5-5.0); TOTAL PROTEIN, SERUM 6.4 g/dL (6.0-8.3)
[2022-12-01] MEDS: LOSARTAN 50 MG TABLET PO SCH ×2 (09:27→19:39)
[2022-12-01] MEDS: CARVEDILOL 3.125 MG TABLET PO SCH ×2 (09:27→19:40)
[2022-12-01] MEDS: HYDROCHLOROTHIAZIDE 25 MG TABLET PO SCH (09:28)
[2022-12-01] MEDS: ENOXAPARIN SODIUM 40 MG/0.4 ML SYRINGE SQ SCH (09:28)
[2022-12-01] MEDS: AMLODIPINE 5 MG TAB PO SCH (09:28)
[2022-12-01] MEDS: ACETAMINOPHEN WITH CODEINE 1 TAB TAB PO PRN (12:05)
[2022-12-01] MEDS: CEFTRIAXONE 2GM VIAL IVP SCH (12:05)
[2022-12-01] MEDS ORDERED: HYDROXYZINE 25 MG TABLET PO STA (22:22)
[2022-12-02 00:37] VITALS: BP 158/70
[2022-12-02 03:25] VITALS: BP 157/64
[2022-12-02] MEDS: LACTATED RINGERS 1000ML 1,000 ML IV SCH (05:24)
[2022-12-02] MEDS: INSULIN HUMULIN R 100 UNIT/ML 3ML SQ SCH (06:03)
[2022-12-02] MEDS: ACETAMINOPHEN WITH CODEINE 1 TAB TAB PO PRN (06:54)
[2022-12-02] MEDS: CARVEDILOL 3.125 MG TABLET PO SCH (09:01)
[2022-12-02] MEDS: HYDROCHLOROTHIAZIDE 25 MG TABLET PO SCH (09:01)
[2022-12-02] MEDS: LOSARTAN 50 MG TABLET PO SCH (09:01)
[2022-12-02] MEDS: AMLODIPINE 5 MG TAB PO SCH (09:01)
[2022-12-02] MEDS: ENOXAPARIN SODIUM 40 MG/0.4 ML SYRINGE SQ SCH (09:02)
[2022-12-02] MEDS: CEFTRIAXONE 2GM VIAL IVP SCH (09:26)
[2022-12-02 12:00] VITALS: BP 122/52
== END 2022-12-02 13:40 | DRG 872 ==
LOC: EDH 06:55 → EDHIP 10:28 → 4AH 15:00
PROVIDERS: ADMIT Internal Medicine; ATTEND Internal Medicine
DX: A41.9 Sepsis, unspecified organism (principal); N39.0 Urinary tract infection, site not specified; B96.20 Unspecified Escherichia coli [E. coli] as the cause of diseases classified elsewhere; E10.9 Type 1 diabetes mellitus without complications; I10 Essential (primary) hypertension; R65.20 Severe sepsis without septic shock; Z66 Do not resuscitate; W01.0XXA Fall on same level from slipping, tripping and stumbling without subsequent striking against object, initial encounter; G47.00 Insomnia, unspecified; Y93.89 Activity, other specified; Y92.89 Other specified places as the place of occurrence of the external cause; Y99.8 Other external cause status; Z79.4 Long term (current) use of insulin; Z82.49 Family history of ischemic heart disease and other diseases of the circulatory system; Z86.73 Personal history of transient ischemic attack (TIA), and cerebral infarction without residual deficits; Z87.440 Personal history of urinary (tract) infections; Z88.6 Allergy status to analgesic agent
CPT/HCPCS: 36415; 70450; 71045; 73030; 80053; 81001; 82948; 83036; 83605; 84484; 85025; 85027; 87040; 87077; 87088; 87186; 93005; 97039; G0378; J0360; J0696; J1650; J7030; J7120

== ENCOUNTER → 2023-05-23 | Outpatient (CLI) | payer MEDICARE ==
[~2023-05-23] MED LIST changes: +CARB-283 OP; -CEPH250C2 PO; -CRAN400C PO; +CRAN500T4 PO; +HYDR12.54 PO
[2023-05-23 09:38] LABS: BASOPHILS # (AUTO) 0.01 K/uL (0.00-0.20); BASOPHILS % (AUTO) 0.2 % (0.0-5.0); EOSINOPHILS # (AUTO) 0.12 K/uL (0.00-0.70); HEMATOCRIT 39.4 % (36-48); IMMATURE GRANULOCYTE ABSOLUTE 0.01 K/uL (0-1); LYMPHOCYTES # (AUTO) 1.1 K/uL (1.0-4.8); LYMPHOCYTES % (AUTO) 17.9 % (21.0-51.0); MEAN CORPUSCULAR HEMOGLOBIN 31.1 pg (27.0-33.0); MEAN CORPUSCULAR VOLUME 97.3 fL (79-99); MONOCYTES # (AUTO) 0.3 K/uL (0.1-1.0); MONOCYTES % (AUTO) 5.4 % (3.0-13.0); NEUTROPHILS # (AUTO) 4.5 K/uL (1.8-7.7); NEUTROPHILS % (AUTO) 74.3 % (40.0-77.0); PLATELET COUNT (AUTO) 198 K/uL (130-400); RED BLOOD CELL COUNT(AUTO) 4.05 MIL/uL (4.00-5.50); RED CELL DISTRIBUTION WIDTH 12.5 % (11.0-15.5)
[2023-05-23 09:50] LABS: CREATININE 0.8 mg/dL (0.5-1.5); POTASSIUM 3.6 mmol/L (3.5-5.1)
== END | disposition home or self-care (01) ==
LOC: LAB 08:35
PROVIDERS: ATTEND Urology
DX: R31.9 Hematuria, unspecified (principal); R10.9 Unspecified abdominal pain
CPT/HCPCS: 36415; 80048; 85025

== ENCOUNTER → 2023-05-27 | Outpatient (CLI) | payer MEDICARE ==
[~2023-05-27] MED LIST changes: +IOHEXOL-350 75 ML VIAL IV ONE
== END | disposition home or self-care (01) ==
LOC: RAH 08:28
PROVIDERS: ATTEND Urology
DX: K57.30 Diverticulosis of large intestine without perforation or abscess without bleeding (principal); M47.815 Spondylosis without myelopathy or radiculopathy, thoracolumbar region; N32.89 Other specified disorders of bladder; R10.9 Unspecified abdominal pain; R31.9 Hematuria, unspecified
CPT/HCPCS: 74178; Q9967